=== PATIENT | female | born 1995 | race Caucasian/White ===

== ENCOUNTER 2019-12-27 14:46 | Emergency (ER) | payer OTHER, SELFPAY ==
[2019-12-27 15:04] VITALS: BP 131/71; PULSE 82; RESP 16; TEMP 37.1; O2SAT 99; BMI 24.0
[2019-12-27 15:54] VITALS: BP 126/74; PULSE 74; RESP 17; O2SAT 100
--- NOTE | 2019-12-27 22:48 | ED.SKABFB ---
HPI - Skin/Abscess/Foreign Bdy <MARCI Isabel - Last Filed: 12/27/19 23:22> General Chief complaint: Skin/Abscess/Foreign Body Stated complaint: both hands rash x14 days Time Seen by Provider: 12/27/19 14:54 Source: patient Mode of arrival: Ambulatory Limitations: no limitations History of Present Illness HPI narrative: This is a 24 year female, smoker, who has a history of psoriasis since age 5 presents to ED with bilateral wrist and hand exacerbation of psoriasis last 3 weeks with discomfort. Patient reports some headache, generalized fatigue and not feeling well. Patient states sweaty at nights but denies fever, chills, nausea or vomiting. Patient reports she is super stressed about psoriatic rash. She does not currently have primary care physician and since she is working nights has difficult time finding PCP after she moved. She Has [employer] insurance. She had tried previous triamcinolone ointment but does not feel this has been helpful. She also has history of depression/anxiety and takes venlafaxine daily. She had not tried other medication treatment for discomfort at home. Related Data Home Medications Medication Instructions Recorded Confirmed venlafaxine mg PO 12/27/19 Previous Rx's Medication Instructions Recorded betamethasone dipropionate 1 applictn TOP BID #45 gram 12/27/19 tacrolimus 1 applictn TOP BID #60 gram 12/27/19 Review of Systems <MARCI Isabel - Last Filed: 12/27/19 23:22> Review of Systems Narrative: General: See HPI HEENT: Denies sinus pain, ear pain, sore throat, difficulty swallowing, dizziness. Respiratory: Denies dyspnea, cough, wheezing, hemoptysis, sputum. Cardiovascular: Denies chest pain, palpitations, orthopnea, edema. Gastrointestinal: Denies nausea, vomiting, abdominal pain, diarrhea, constipation, melena. : Denies dysuria, frequency, incontinence, hematuria, urinary retention. Musculoskeletal: Denies weakness, joint pain or bony pain. Skin: See HPI Neurologic: Denies weakness, headache, numbness, change in speech, confusion, seizures, incoordination. Psychiatric: See HPI 12-point review of systems is negative except for those stated above. Patient History <MARCI Isabel - Last Filed: 12/27/19 23:22> Social History Smoking Status: Never smoker Smoking Status: Never smoker alcohol intake frequency: 0-2 drinks per day Substance Use Type: marijuana Exam <Dudley SinghMARCI Coronado - Last Filed: 12/27/19 23:22> Narrative Exam Narrative: General appearance: well developed, well nourished, in moderate distress. Head: normocephalic, atraumatic, no scalp lesions, non-tender. ENT: Hearing grossly intact. Nose without bleeding, purulent discharge. Airway patent. Neck/Thyroid: neck supple, full range of motion, no visible masses or meningeal signs. No JVD, non-tender without lymphadenopathy. Skin: erythematous, raised scaly and plaque like thick psoriatic rash in bilateral dorsal aspect of near wrist/hand with multiple small annular shape which are not as elevated and scaly but with mild erythemtous rash in bilateral inner arms. No purulent discharge or pustules appreciated. No increase in warmth per palpation. Heart: no clubbing, no cyanosis, no edema. Lungs: Breathing even and unlabored. No stridor. No accessory muscles used. Able to speak in full sentences. Chest: normal shape and expansion. Abdomen: non-obese, non-distended. Neurologic: alert and oriented. Cognitive exam, QUALITY ASSURANCE SUPERVISOR FINAL and PNS grossly intact on informal exam. Psych: Tearful during exam. Good eye contact. Cooperative. Initial Vital Signs Initial Vital Signs: Vital Signs Temperature 98.7 F 12/27/19 15:04 Pulse Rate 82 12/27/19 15:04 Respiratory Rate 16 12/27/19 15:04 Blood Pressure 131/71 12/27/19 15:04 Pulse Oximetry 99 12/27/19 15:04 <Emeka Chen MD - Last Filed: 12/28/19 08:07> Initial Vital Signs Initial Vital Signs: Vital Signs Temperature 98.7 F 12/27/19 15:04 Pulse Rate 82 12/27/19 15:04 Respiratory Rate 16 12/27/19 15:04 Blood Pressure 131/71 12/27/19 15:04 Pulse Oximetry 99 12/27/19 15:04 Scores <Dudley CunninghamMARCI White - Last Filed: 12/27/19 23:22> GCS Yuri coma scale eye opening: Spontaneous Ariel coma scale verbal response: Orientated Yuri coma scale motor response: Obey commands Ariel coma scale total score: 15 Course <CESAR IsabelP - Last Filed: 12/27/19 23:22> Vital Signs Vital signs: Vital Signs - 8 hr 12/27/19 15:04 12/27/19 15:54 Temperature 98.7 F Pulse Rate 82 74 Respiratory Rate 16 17 Blood Pressure 131/71 Blood Pressure [Right Arm] 126/74 Pulse Oximetry 99 100 <Emeka Chen MD - Last Filed: 12/28/19 08:07> Vital Signs Vital signs: Vital Signs - 8 hr 12/27/19 15:04 12/27/19 15:54 Temperature 98.7 F Pulse Rate 82 74 Respiratory Rate 16 17 Blood Pressure 131/71 Blood Pressure [Right Arm] 126/74 Pulse Oximetry 99 100 MDM - Skin/Abscess/Foreign Bdy <MARCI Isabel - Last Filed: 12/27/19 23:22> Differential Diagnosis Differential diagnosis: Likely cellulitis and other (Psoriasis, eczema, pustulear psoriasis) MDM Narrative Medical decision making narrative: Physical exam is not consistent with pustular psoriasis. Patient is afebrile with within normal vital signs.. There is no drainage or pustules appreciated. Patient advised to contact [facility] to set up a PCP and a referral to rubber mill operator to have appropriate workup and whether patient is requiring biologic immuno modifying agent therapy. Patient advised to use good quality emollients when the skin is still moist. Patient discharged to home with topical steroid ointment Betamethasone and Tacrolimus ointment to use BID. Return precautions were discussed with the patient and patient verbalized understanding and agreement with the treatment plan. Discharge Plan Departure Patient Disposition: Home Clinical Impression: Psoriasis Discharge Date/Time: 12/27/19 16:04 Instructions: DI for Psoriasis Activity Restrictions/Additional Instructions: You have been diagnosed with [psoriatic rash in bilateral hands and wrist.]. What to do: *Take your medications as directed. Please use Betamethasone 0.05% ointment and Tacrolimus 0.03% ointment twice a day on affected site. Always use good emollient cream. Strong steroid cream can cause thinning of skin so please try to avoid between digits. These 2 ointments have been transmitted to [facility] in [place]. *Follow up with your primary care provider in 2-3 days, call for an appointment. Please contact [facility] (formerly [facility]) to set up a PCP and you may need workup for psoriasis. Let them know you were seen in the ED and that we asked you to be seen in follow up. *Return to ED if you have any new, worsening, or concerning symptoms, such as [chest pain, breathing difficulty, unable to tolerate fluids, fever, or any acute concerns.]. Prescriptions: New tacrolimus 0.03 % ointment 1 applictn TOP BID Qty: 60 RF: 0 betamethasone dipropionate 0.05 % cream 1 applictn TOP BID Qty: 45 RF: 0 No Action venlafaxine 75 mg capsule,extended release 24hr PO RF: 0
== END 2019-12-27 16:04 | disposition home or self-care (01) ==
PROVIDERS: Emergency Provider Nurse Practitioner Family
DX: L40.9 Psoriasis, unspecified (principal)
CPT/HCPCS: 99281

== ENCOUNTER 2020-10-27 02:07 | Emergency (ER) | payer OTHER, MEDICAID, SELFPAY ==
[2020-10-27 02:18] VITALS: BP 141/82; PULSE 85; RESP 20; TEMP 37.7; O2SAT 100; BMI 47.7
--- NOTE | 2020-10-27 02:24 | ED.GENADULT ---
HPI - General Adult General Chief complaint: Dental/Oral Stated complaint: PAIN LOWER RIGHT JAW HAS TOOTH PROBLEM Time Seen by Provider: 10/27/20 02:09 Source: patient Mode of arrival: Ambulatory Limitations: no limitations History of Present Illness HPI narrative: 25-year-old female who is here for evaluation of right lower drawl pain. She knows that she has dental issues in her right lower jaw and also her left lower jaw. She has seen a dentist who placed referral for her to see an oral surgeon. She has been attempting to make contact with the oral surgeon to have definitive treatment and have the tooth pulled but states that they have not called her back. She states that over the past couple days symptoms have been worsening in this evening she was having problems sleeping. No problems breathing. States she has been taking Tylenol and ibuprofen. Related Data Home Medications Medication Instructions Recorded Confirmed venlafaxine mg PO 12/27/19 Previous Rx's Medication Instructions Recorded betamethasone dipropionate 1 applictn TOP BID #45 gram 12/27/19 tacrolimus 1 applictn TOP BID #60 gram 12/27/19 penicillin V potassium 500 mg PO QID 7 Days #28 tab 10/27/20 Review of Systems Constitutional Constitutional: Denies fever(s) ENT Comments: Dental pain Cardiovascular Cardiovascular: Denies chest pain Gastrointestinal Gastrointestinal: Denies vomiting Integumentary/Breasts Skin/Breast: Denies rash Hematologic/Lymphatic On Anticoagulants: No Allergic/Immunologic Allergic/Immunologic: Denies urticaria Patient History Medical History Patient denies medical problems Social History Smoking Status: Never smoker Smoking Status: Never smoker alcohol intake frequency: 0-2 drinks per day Substance Use Type: marijuana Exam Initial Vital Signs Initial Vital Signs: Vital Signs Temperature 99.8 F H 10/27/20 02:18 Pulse Rate 85 10/27/20 02:18 Respiratory Rate 20 10/27/20 02:18 Blood Pressure 141/82 H 10/27/20 02:18 Pulse Oximetry 100 10/27/20 02:18 Const General: cooperative Limitations: mental status not altered HENMT Head: normal to inspection Nose: external nose normal Mouth: lip normal, tongue normal and other (First molar right lower jaw all decayed.) Throat: posterior oropharynx normal Resp Effort & Inspection: normal respiratory effort Skin Lesions: no lesions Rashes: no rashes Neuro General: patient alert, patient awake and patient oriented x3 Course Orders Ordered: Discontinued Medications Penicillin V Potassium (Penicillin Vk 250 Mg Tablet) 500 mg PO NOW ONE Stop: 10/27/20 02:23 Tramadol HCl (Tramadol 50 Mg Prepack) 1 bottle MISC SEEINSTR ONE Stop: 10/27/20 02:24 Vital Signs Vital signs: Vital Signs - 8 hr 10/27/20 02:18 Temperature 99.8 F H Pulse Rate 85 Respiratory Rate 20 Blood Pressure 141/82 H Pulse Oximetry 100 Medical Decision Making MDM Narrative Medical decision making narrative: Patient does have a fairly advanced decayed 1st molar in her right lower jaw. There is no definitive abscess seen on her exam that would be amenable to incision and drainage here in the ER. She also has other poor dentition. Given the increase in discomfort over the past couple days I feel treating with antibiotics is not unreasonable. She was given 1st dose here in the ER will send home with a prescription. Also sent home with a prepack of Ultram. She was informed that she should continue to take Tylenol and ibuprofen and to continue to try to make contact with a dental provider for definitive treatment. She has no airway compromise. She was given return precautions and follow-up instructions. She expressed understanding and agreement. Discharge Plan Departure Patient Disposition: Home Clinical Impression: Pain, dental Instructions: DI for Dental Pain Activity Restrictions/Additional Instructions: Unfortunately there is not much more we can do for you out of the emergency department. Your definitive care is going to come from a dentist/oral surgeon who can pull the tooth. Recommend that you continue to try to make calls in order to schedule the follow-up appointment. Please take the antibiotics as directed. Continue to take Tylenol every 4-6 hours based on the instructions on the bottle. You can also take 800 mg of ibuprofen/Motrin every 8 hours with some food. Contact your primary provider for follow-up Prescriptions: New penicillin V potassium 500 mg tablet 500 mg PO QID 7 Days Qty: 28 RF: 0 No Action tacrolimus 0.03 % ointment 1 applictn TOP BID Qty: 60 RF: 0 betamethasone dipropionate 0.05 % cream 1 applictn TOP BID Qty: 45 RF: 0 venlafaxine 75 mg capsule,extended release 24hr PO RF: 0
[2020-10-27] MEDS: TRAMADOL 50 MG PREPACK 1 BOTTLE MISC (02:31)
[2020-10-27] MEDS: PENICILLIN VK 250 MG TABLET 500 MG PO (02:31)
[2020-10-27 02:35] VITALS: BP 117/74; PULSE 85; RESP 18; O2SAT 97
== END 2020-10-27 02:36 | disposition home or self-care (01) ==
LOC: ED 02:15
PROVIDERS: Emergency Provider Emergency Medicine
DX: K08.89 Other specified disorders of teeth and supporting structures (principal)
CPT/HCPCS: 99283

== ENCOUNTER 2023-08-09 09:49 | Emergency (ER) | payer OTHER, MEDICAID, SELFPAY ==
[2023-08-09] VITALS (8 sets, daily range): BP systolic 102–119; BP diastolic 61–70; PULSE 60–80; RESP 20; TEMP 36.8; O2SAT 98–100; BMI 19.8
--- NOTE | 2023-08-09 10:13 | ED_ITS ---
HPI - General Adult General Chief complaint: Abdominal Pain Stated complaint: sent from [facility] abd pain Time Seen by Provider: 08/09/23 09:49 Source: patient Mode of arrival: Ambulatory Limitations: no limitations History of Present Illness HPI narrative: 28-year-old female who was sent from the walk-in clinic for evaluation of 3-4 days of lower back discomfort. States she has had persistent discomfort during this time but there are periods of time when it is worse than others. Not necessarily associated with movement or bowel movements or urination. She does state that it does somewhat hurt to have a bowel movement and urinating but it does not make her abdominal pain worse. No fevers. No recent travel. No recent antibiotics. No prior abdominal surgeries. Not on control. Last menstrual cycle was less than 1 month ago. Related Data Home Medications Medication Instructions Recorded Confirmed venlafaxine 75 mg capsule,extended mg PO 12/27/19 release 24 hr Previous Rx's Medication Instructions Recorded betamethasone dipropionate 0.05 % 1 applictn topical BID #45 grams 12/27/19 topical cream tacrolimus 0.03 % topical ointment 1 applictn topical BID Psoriasis 12/27/19 #60 grams Review of Systems Review of Systems ROS Unobtainable: All systems reviewed & are unremarkable except as noted in HPI and below Patient History Medical History Patient denies medical problems Social History Smoking Status: Never smoker Smoking Status: Never smoker alcohol intake frequency: 0-2 drinks per day Substance Use Type: marijuana Exam Initial Vital Signs Initial Vital Signs: Vital Signs Pulse Rate 76 08/09/23 09:59 Pulse Oximetry 99 08/09/23 09:59 Oxygen Delivery Method Room Air 08/09/23 09:59 HENMT Head: normal to inspection and normocephalic Resp Effort & Inspection: normal respiratory effort Auscultation: clear to auscultation bilaterally Cardio Rate: regular rate Rhythm: regular rhythm GI Inspection: normal to inspection and non-distended Palpation: soft, No firm, No guarding and tender (Lower abdomen) Back/Spine/Pelvis Back: No CVA tenderness Neuro General: patient alert, patient awake and moves all extremities Course Orders Ordered: ED Orders 08/09/23 10:14 CT abdomen pelvis w con Stat 08/09/23 10:20 Complete Blood Count AUTO DIFF Stat Comprehensive Metabolic Panel Stat Lipase Stat 08/09/23 11:10 US pelvic complete Stat Vital Signs Vital signs: Vital Signs - 8 hr 08/09/23 09:59 08/09/23 10:00 08/09/23 10:00 Temperature 98.3 F Pulse Rate 76 75 Respiratory Rate 20 Blood Pressure 119/69 119/69 Pulse Oximetry 99 98 Oxygen Delivery Method Room Air Room Air 08/09/23 10:00 08/09/23 10:58 08/09/23 11:00 Temperature Pulse Rate 74 60 Respiratory Rate Blood Pressure 102/61 Pulse Oximetry 98 100 Oxygen Delivery Method Room Air 08/09/23 11:00 08/09/23 11:49 08/09/23 12:00 Temperature Pulse Rate 64 63 63 Respiratory Rate Blood Pressure Pulse Oximetry 99 99 98 Oxygen Delivery Method Room Air Room Air Medical Decision Making Lab Data Lab results reviewed: Yes I reviewed the patient's lab results. 08/09/23 10:20 08/09/23 10:20 Labs: Lab Results 08/09/23 Range/Units 10:20 WBC 6.7 (4.5-11.0) X10^3/uL RBC 4.28 (4.0-5.2) X10^6/uL Hgb 12.1 (12.0-16.0) g/dL Hct 36.3 (36-46) % MCV 84.8 (80-100) fL MCH 28.2 (26-34) PG MCHC 33.2 (30-36) % RDW 13.9 (11.6-14.8) % Plt Count 293 (150-400) X10^3/uL Neut % (Auto) 75.9 H (50-75) % Lymph % (Auto) 14.6 L (25-40) % [place] % (Auto) 6.8 (3-14) % Eos % (Auto) 1.9 L (2-4) % Baso % (Auto) 0.8 (0-2) % Neut # (Auto) 5100 (6576-1041) /uL Lymph # (Auto) 1000 L (2661-2026) /uL [place] # (Auto) 500 (0-900) /uL Eos # (Auto) 100 (0-450) /uL Baso # (Auto) 100 (0-100) /uL Sodium 135 L (137-145) mmol/L Potassium 4.0 (3.4-5.1) mmol/L Chloride 106 (98-107) mmol/L Carbon Dioxide 22 (22-32) mmol/L BUN 7 (7-17) mg/dL Creatinine 0.54 (0.52-1.04) mg/dL Estimated GFR > 60 (>60) mL/min BUN/Creatinine Ratio 13.0 (6-22) Glucose 103 H (70-100) mg/dL Calcium 8.6 (8.4-10.2) mg/dL Total Bilirubin 0.7 (0.2-1.3) mg/dL AST 19 (14-36) IU/L ALT 12 (<35) IU/L Alkaline Phosphatase 40 (38-126) U/L Total Protein 7.1 (6.3-8.2) g/dL Albumin 4.0 (3.5-5.0) g/dL Globulin 3.1 (1.7-4.1) g/dL Albumin/Globulin Ratio 1.3 (1.0-2.8) Lipase 89 (23-300) U/L Point of Care Testing Test Results Negative Urine Dip Bedside Urine Glucose Negative Bedside Urine Bilirubin - Negative Bedside Urine Ketone - Negative Urine Specific Leslie 1.030 Bedside Urine Occult Blood - Negative Bedside Urine pH 6.0 Bedside Urine Protein - Negative Bedside Urine Urobilinogen - Negative Bedside Urine Nitrite - Negative Bedside Urine Leukocytes - Negative Esterase Point of care testing: Point of Care Testing Test Results Negative Urine Dip Bedside Urine Glucose Negative Bedside Urine Bilirubin - Negative Bedside Urine Ketone - Negative Urine Specific Leslie 1.030 Bedside Urine Occult Blood - Negative Bedside Urine pH 6.0 Bedside Urine Protein - Negative Bedside Urine Urobilinogen - Negative Bedside Urine Nitrite - Negative Bedside Urine Leukocytes - Negative Esterase Imaging Data CT scan - abdomen/pelvis: Radiologist's Impression: PROCEDURE: CT ABDOMEN PELVIS W CON INDICATIONS: Lower abdominal discomfort. Left lower quadrant pain. TECHNIQUE: After the administration of intravenous contrast, axial sections acquired from the lung bases to the pubic symphysis. Coronal and sagittal reformats were performed. For radiation dose reduction, the following was used: automated exposure control, adjustment of mA and/or kV according to patient size. COMPARISON: None. FINDINGS: Image quality: Diagnostic. Lower Chest: No significant findings. ABDOMEN: Liver: No solid mass. Gallbladder: No radiopaque gallstones or wall thickening. Biliary ducts: No biliary dilation. Pancreas: No ductal dilation. Spleen: Size is within normal limits. Adrenal Glands: No adrenal nodules. Kidneys and Ureters: No hydronephrosis. No solid mass. No complex renal cystic lesion which requires follow up. Stomach and Bowel: Normal colonic caliber, without significant wall thickening. Appendix not visualized. Peritoneum: No abnormal intraperitoneal fluid. No free air. Ventral Wall: No significant ventral hernia. Abdominal Nodes: No retroperitoneal or mesenteric adenopathy by size criteria. Vessels: Aorta and inferior vena cava are normal in size. PELVIS: Pelvic Organs: Uterus is grossly unremarkable. There is a partially collapsed left ovarian cyst. There is mild pelvic ascites, greater than physiologic. There is mild increased density in the ascites, suggesting that it likely arose from a hemorrhagic ovarian cyst. Bladder: No bladder wall thickening, accounting for underdistention. Pelvic Nodes: No enlarged lymph nodes. Miscellaneous: No inguinal hernias are seen. Bones: No aggressive osseous abnormality. IMPRESSION: 1. Appendix not visualized. There is mild pelvic ascites. There is mild increased density within the fluid. There is a partially collapsed left ovarian cyst. Comment: Findings likely simply represent sequelae of cyst rupture. However, recommend clinical correlation for findings which may suggest ruptured appendicitis as a possible etiology. US - SCRAP CARRIER: Radiologist's Impression: PROCEDURE: US PELVIC COMPLETE INDICATIONS: LEFT ADNEXA PAIN TECHNIQUE: Real-time scanning was performed of the pelvic organs, with image documentation. Additional endovaginal scanning was necessary due to incomplete visualization of the adnexal and endometrial structures by transabdominal scanning. COMPARISON: None. FINDINGS: Uterus: Uterus is anteverted and normal in size at 7.3 x 4.1 x 3.4 cm. The myometrium is homogeneous. The endometrium measures 11.7 mm combined thickness. Small endometrial cyst approximately 3 x 1 cm. Ovaries: The right ovary measures 3.3 x 2.2 x 1.8 cm, with a calculated ovarian volume of 6.7 cc. The left ovary measures 3.4 x 2.9 x 2.3 cm, with a calculated ovarian volume of 11.7 cc. The ovaries have a normal sonographic appearance. Probable hemorrhagic cyst in the left ovary measures 2.1 x 1.9 x 1.5. Less than 12 follicles are noted bilaterally. No adnexal masses are seen. Other: [id number] heterogenous free fluid in the pelvis IMPRESSION: Probable ruptured hemorrhagic cyst. [id number] adnexal heterogenous free fluid and thick-walled 2.1 cm left ovarian hemorrhagic cyst, probable collapsing hemorrhagic cyst. MDM Narrative Medical decision making narrative: CT scan and ultrasound today did not show any acute pathology. Findings are most consistent with a ruptured ovarian cyst. Most likely hemorrhagic given the nature of the fluid in her pelvis. No signs of infection. No indication for emergent surgical consultation. Suspect that her symptoms will improve. I discussed all this with the patient. Will discharge her home with return precautions. She expressed understanding and agreement. Discharge Plan Departure Patient Disposition: Home Clinical Impression: Pelvic pain Instructions: DI for Pelvic Pain Activity Restrictions/Additional Instructions: Like we discussed your workup here in the emergency department today is most consistent with a ruptured cyst. This is most likely what we call a hemorrhagic cyst. I suspect that your symptoms will improve over the next couple days. Contact your primary doctor for a follow-up. Return to the emergency department for new symptoms. Prescriptions: No Action tacrolimus 0.03 % ointment 1 applictn TOP BID Qty: 60 0RF betamethasone dipropionate 0.05 % cream 1 applictn TOP BID Qty: 45 0RF venlafaxine 75 mg capsule,extended release 24hr PO Referrals: Miscellaneous,[facility] [Primary Care Provider] - Stand Alone Forms: Patient Portal/API
--- NOTE | 2023-08-09 10:37 | PC.NURSE ---
Pt reports back in june of 2023 she took a plan B pill because she needed to. A week later she developed abdominal pain. Three days ago today patient developed LLQ abdominal pain again with nausea. She has been taking ibuprofen for the pain. Currently denies nausea in the ER.
[2023-08-09 10:39] LABS: Add Manual Diff / Slide Review NO; Basophils Absolute Auto 100 /uL (0-100); Basophils Percent Auto 0.8 % (0-2); Eosinophils Absolute Auto 100 /uL (0-450); Eosinophils Percent Auto 1.9 % (2-4); Hematocrit 36.3 % (36-46); Hemoglobin 12.1 g/dL (12.0-16.0); Lymphocytes Absolute Auto 1000 /uL (1100-4500); Lymphocytes Percent Auto 14.6 % (25-40); Mean Corpuscular HGB Conc 33.2 % (30-36); Mean Corpuscular Hemoglobin 28.2 PG (26-34); Mean Corpuscular Volume 84.8 fL (80-100); Monocytes Absolute Auto 500 /uL (0-900); Monocytes Percent Auto 6.8 % (3-14); Neutrophils Absolute Auto 5100 /uL (1500-7000); Neutrophils Percent Auto 75.9 % (50-75); Platelet Count 293 X10^3/uL (150-400); Red Blood Cell Count 4.28 X10^6/uL (4.0-5.2); Red Cell Distribution Width 13.9 % (11.6-14.8); White Blood Cell Count 6.7 X10^3/uL (4.5-11.0)
[2023-08-09 10:50] LABS: Alanine Aminotransferase 12 IU/L (<35); Albumin Globulin Ratio 1.3 (1.0-2.8); Alkaline Phosphatase 40 U/L (38-126); Aspartate Aminotransferase 19 IU/L (14-36); Bilirubin Total 0.7 mg/dL (0.2-1.3); Blood Urea Nitrogen 7 mg/dL (7-17); Calcium 8.6 mg/dL (8.4-10.2); Carbon Dioxide 22 mmol/L (22-32); Chloride 106 mmol/L (98-107); Estimated Glomerular Filt Rate > 60 mL/min (>60); Globulin 3.1 g/dL (1.7-4.1); Glucose 103 mg/dL (70-100); HEMOLYSIS < 15 (0-50); Lipase 89 U/L (23-300); Sodium 135 mmol/L (137-145); Total Protein 7.1 g/dL (6.3-8.2)
--- NOTE | 2023-08-09 11:10 | DI.US.S_ITS ---
PROCEDURE: US PELVIC COMPLETE INDICATIONS: LEFT ADNEXA PAIN TECHNIQUE: Real-time scanning was performed of the pelvic organs, with image documentation. Additional endovaginal scanning was necessary due to incomplete visualization of the adnexal and endometrial structures by transabdominal scanning. COMPARISON: None. FINDINGS: Uterus: Uterus is anteverted and normal in size at 7.3 x 4.1 x 3.4 cm. The myometrium is homogeneous. The endometrium measures 11.7 mm combined thickness. Small endometrial cyst approximately 3 x 1 cm. Ovaries: The right ovary measures 3.3 x 2.2 x 1.8 cm, with a calculated ovarian volume of 6.7 cc. The left ovary measures 3.4 x 2.9 x 2.3 cm, with a calculated ovarian volume of 11.7 cc. The ovaries have a normal sonographic appearance. Probable hemorrhagic cyst in the left ovary measures 2.1 x 1.9 x 1.5. Less than 12 follicles are noted bilaterally. No adnexal masses are seen. Other: Ingl-wi-qhfqxhbm heterogenous free fluid in the pelvis IMPRESSION: Probable ruptured hemorrhagic cyst. [id number] adnexal heterogenous free fluid and thick-walled 2.1 cm left ovarian hemorrhagic cyst, probable collapsing hemorrhagic cyst. Approved by: Cristopher Mishra M.D. on 08/09/2023 at 11:14
== END 2023-08-09 12:40 | disposition home or self-care (01) ==
PROVIDERS: Emergency Provider Emergency Medicine
DX: R10.2 Pelvic and perineal pain (principal)
CPT/HCPCS: 36415; 74177; 76830; 76856; 80053; 81003; 81025; 83690; 85025; 93975; 99284

== ENCOUNTER 2023-08-16 19:59 | Emergency (ER) | payer OTHER, MEDICAID, SELFPAY ==
[2023-08-16 19:59] VITALS: BP 111/65; PULSE 79; RESP 16; TEMP 36.4; O2SAT 100; BMI 19.8
--- NOTE | 2023-08-16 20:44 | ED.GENADULT ---
HPI - General Adult General Chief complaint: Abdominal Pain Stated complaint: post ovarian cyst rupture/pain/N/vaginal bleeding Time Seen by Provider: 08/16/23 20:02 Source: patient Mode of arrival: Family Vehicle History of Present Illness HPI narrative: 28-year-old female who I evaluated in the emergency department approximately 1 week ago. Had an extensive workup to include CT scan of the abdomen and pelvis and an ultrasound. Findings were concerning for a recently ruptured left-sided hemorrhagic ovarian cyst. She states since that time she has had some continued discomfort in her lower abdomen. There are periods of time when it was worse than others. Is also having some nausea but no vomiting. She was also started to have vaginal bleeding. She does admit that this is the time for her to have a menstrual cycle she just feels like the amount of bleeding she has having a somewhat abnormal for her. No fevers. No urinary symptoms. No change in bowel habits. She does have a follow-up scheduled with a new primary doctor in approximately 10 days from now. She reports no new abdominal pain just continued discomfort from the last time she was here. Related Data Home Medications Medication Instructions Recorded Confirmed venlafaxine 75 mg capsule,extended mg PO 12/27/19 release 24 hr Previous Rx's Medication Instructions Recorded betamethasone dipropionate 0.05 % 1 applictn topical BID #45 grams 12/27/19 topical cream tacrolimus 0.03 % topical ointment 1 applictn topical BID Psoriasis 12/27/19 #60 grams Allergies Allergy/AdvReac Type Severity Reaction Status Date / Time No Known Drug Allergies Allergy Verified 08/16/23 20:15 Review of Systems Cardiovascular Cardiovascular: Reports system reviewed and no additional complaints, except as documented Respiratory Respiratory: Reports system reviewed and no additional complaints, except as documented Gastrointestinal Gastrointestinal: Reports system reviewed and no additional complaints, except as documented Genitourinary Genitourinary: Reports system reviewed and no additional complaints, except as documented Integumentary/Breasts Skin/Breast: Reports system reviewed and no additional complaints, except as documented Hematologic/Lymphatic On Anticoagulants: No Patient History Medical History Patient denies medical problems Social History Smoking Status: Never smoker Smoking Status: Never smoker tobacco type: vaping alcohol intake frequency: 0-2 drinks per day Substance Use Type: marijuana Exam Initial Vital Signs Initial Vital Signs: Vital Signs Temperature 97.6 F 08/16/23 19:59 Pulse Rate 79 08/16/23 19:59 Respiratory Rate 16 08/16/23 19:59 Blood Pressure 111/65 08/16/23 19:59 Pulse Oximetry 100 08/16/23 19:59 Oxygen Delivery Method Room Air 08/16/23 19:59 HENMT Head: normal to inspection and atraumatic Resp Effort & Inspection: normal respiratory effort Cardio Rate: regular rate GI Inspection: non-distended Palpation: No firm, No guarding and tender Neuro General: patient alert, patient awake and moves all extremities Extrem General: capillary refill normal Course Orders Ordered: ED Orders 08/16/23 20:50 CBC Auto Diff [Complete Blood Count AUTO DIFF] Stat Discontinued Medications Tramadol HCl (Tramadol 50 Mg Prepack) 1 bottle MISC DIRECTED ONE Stop: 08/16/23 21:35 Last Admin: 08/16/23 21:43 Dose: 1 bottle Documented By: EDITA Vital Signs Vital signs: Vital Signs - 8 hr 08/16/23 19:59 08/16/23 21:44 Temperature 97.6 F 97 F L Pulse Rate 79 70 Respiratory Rate 16 16 Blood Pressure 111/65 108/68 Pulse Oximetry 100 98 Oxygen Delivery Method Room Air Room Air Medical Decision Making Medical Records Medical records reviewed: Yes I reviewed the patient's medical records. Lab Data Lab results reviewed: Yes I reviewed the patient's lab results. 08/16/23 20:50 Labs: Lab Results 08/16/23 Range/Units 20:50 WBC 7.5 (4.5-11.0) X10^3/uL RBC 3.97 L (4.0-5.2) X10^6/uL Hgb 11.5 L (12.0-16.0) g/dL Hct 34.0 L (36-46) % MCV 85.7 (80-100) fL MCH 29.1 (26-34) PG MCHC 34.0 (30-36) % RDW 13.9 (11.6-14.8) % Plt Count 295 (150-400) X10^3/uL Neut % (Auto) 61.9 (50-75) % Lymph % (Auto) 27.0 (25-40) % [place] % (Auto) 7.1 (3-14) % Eos % (Auto) 3.2 (2-4) % Baso % (Auto) 0.8 (0-2) % Neut # (Auto) 4600 (4592-9364) /uL Lymph # (Auto) 2000 (3806-0619) /uL [place] # (Auto) 500 (0-900) /uL Eos # (Auto) 200 (0-450) /uL Baso # (Auto) 100 (0-100) /uL MDM Narrative Medical decision making narrative: Patient is not anemic to the point where she would require any blood transfusion. Given the extensive workup she has had within the past week I do not feel that repeat imaging studies would be beneficial. I did discuss with her that the fluid in the pelvis noted on both the CT scan of the ultrasound can be very irritating and can cause many of the symptoms that she presents with today. She also may have abnormal menstrual cycles because this was a hemorrhagic cyst. She already has follow-up scheduled. No indication for surgical consultation. No indication for admission to the hospital. She was given return precautions. She expressed understanding and agreement. Discharge Plan Departure Patient Disposition: Home Clinical Impression: Pelvic pain Instructions: DI for Pelvic Pain Activity Restrictions/Additional Instructions: I do recommend that you continue taking Tylenol and ibuprofen for the discomfort. Keep your scheduled follow-up appointment that you have with your primary doctor. Return to the emergency department for new symptoms. Prescriptions: No Action tacrolimus 0.03 % ointment 1 applictn TOP BID Qty: 60 0RF betamethasone dipropionate 0.05 % cream 1 applictn TOP BID Qty: 45 0RF venlafaxine 75 mg capsule,extended release 24hr PO Referrals: Miscellaneous,Doctor, [Primary Care Provider] - Stand Alone Forms: Patient Portal/API
[2023-08-16 20:55] LABS: Add Manual Diff / Slide Review NO; Basophils Absolute Auto 100 /uL (0-100); Basophils Percent Auto 0.8 % (0-2); Eosinophils Absolute Auto 200 /uL (0-450); Eosinophils Percent Auto 3.2 % (2-4); Hemoglobin 11.5 g/dL (12.0-16.0); Lymphocytes Absolute Auto 2000 /uL (1100-4500); Mean Corpuscular Hemoglobin 29.1 PG (26-34); Mean Corpuscular Volume 85.7 fL (80-100); Monocytes Absolute Auto 500 /uL (0-900); Monocytes Percent Auto 7.1 % (3-14); Neutrophils Absolute Auto 4600 /uL (1500-7000); Neutrophils Percent Auto 61.9 % (50-75); Platelet Count 295 X10^3/uL (150-400); Red Blood Cell Count 3.97 X10^6/uL (4.0-5.2); Red Cell Distribution Width 13.9 % (11.6-14.8); White Blood Cell Count 7.5 X10^3/uL (4.5-11.0)
[2023-08-16] MEDS: TRAMADOL 50 MG PREPACK 1 BOTTLE MISC (21:43)
[2023-08-16 21:44] VITALS: BP 108/68; PULSE 70; RESP 16; TEMP 36.1; O2SAT 98
== END 2023-08-16 21:45 | disposition home or self-care (01) ==
PROVIDERS: Emergency Provider Emergency Medicine
DX: R10.2 Pelvic and perineal pain (principal)
CPT/HCPCS: 85025; 99281; 99283

== ENCOUNTER 2023-11-12 21:14 | Emergency (ER) | payer OTHER, MEDICAID, SELFPAY ==
[2023-11-12 21:22] VITALS: BP 113/56; PULSE 84; RESP 18; TEMP 36.3; O2SAT 98; BMI 19.0
[2023-11-12 21:43] LABS: Ictotest Urine Negative (Negative)
--- NOTE | 2023-11-12 22:19 | ED_ITS ---
HPI - Abdominal Pain General Chief Complaint: Abdominal Pain Stated Complaint: lower abd pain Time Seen by Provider: 11/12/23 21:32 Source: patient Mode of arrival: Ambulatory History of Present Illness HPI narrative: 28-year-old female with history of psoriasis presents for lower abdominal pain, cramping, bloating sensation, breast tenderness. Denies vaginal bleeding. Seen here 08/16/2023 for lower abdominal pain, diagnosed with ovarian cyst. Patient has been taking savw-ioc-pripoea medication without significant relief of symptoms. Related Data Home Medications Medication Instructions Recorded Confirmed venlafaxine 75 mg capsule,extended mg PO 12/27/19 release 24 hr Previous Rx's Medication Instructions Recorded betamethasone dipropionate 0.05 % 1 applictn topical BID #45 grams 12/27/19 topical cream tacrolimus 0.03 % topical ointment 1 applictn topical BID Psoriasis 12/27/19 #60 grams Allergies Allergy/AdvReac Type Severity Reaction Status Date / Time No Known Drug Allergies Allergy Verified 11/12/23 21:21 Review of Systems Review of Systems Narrative: See HPI Patient History Medical History Patient denies medical problems Social History Smoking Status: Never smoker Smoking Status: Never smoker tobacco type: vaping alcohol intake frequency: 0-2 drinks per day Substance Use Type: marijuana Exam Initial Vital Signs Initial Vital Signs: Vital Signs Temperature 97.4 F L 11/12/23 21:22 Pulse Rate 84 11/12/23 21:22 Respiratory Rate 18 11/12/23 21:22 Blood Pressure 113/56 L 11/12/23 21:22 Pulse Oximetry 98 11/12/23 21:22 Oxygen Delivery Method Room Air 11/12/23 21:22 Const: Awake, alert, no acute distress, nontoxic appearing Cardiac: regular rate, regular rhythm RESP: unlabored, clear bilaterally, no wheezing GI: Soft, nontender, nondistended, no rebound, no guarding Skin: Warm, Dry, extensive psoriatic rash over face, extremities, abdomen Neuro: AO x3, CN II-XII grossly intact, moves all extremities Course Orders Ordered: Discontinued Medications Acetaminophen (Ofirmev) 1,000 mg in 100 mls @ 400 mls/hr IV NOW ONE Stop: 11/12/23 23:10 Last Infusion: 11/12/23 23:32 Dose: Infused Documented By: Admin: 11/12/23 23:10 Dose: 400 mls/hr Documented By: DARCIE Vital Signs Vital signs: Vital Signs - 8 hr 11/12/23 21:22 Temperature 97.4 F L Pulse Rate 84 Respiratory Rate 18 Blood Pressure 113/56 L Pulse Oximetry 98 Oxygen Delivery Method Room Air MDM - Abdominal Pain Differential Diagnosis Differential diagnosis: Likely abdominal pain, endometriosis and other () Lab Data 11/12/23 22:22 11/12/23 22:22 Labs: Lab Results 11/12/23 11/12/23 Range/Units 21:31 22:22 WBC 11.1 H (4.5-11.0) X10^3/uL RBC 4.09 (4.0-5.2) X10^6/uL Hgb 12.0 (12.0-16.0) g/dL Hct 36.0 (36-46) % MCV 87.9 (80-100) fL MCH 29.4 (26-34) PG MCHC 33.4 (30-36) % RDW 13.6 (11.6-14.8) % Plt Count 346 (150-400) X10^3/uL Neut % (Auto) 68.1 (50-75) % Lymph % (Auto) 20.4 L (25-40) % [place] % (Auto) 8.9 (3-14) % Eos % (Auto) 2.1 (2-4) % Baso % (Auto) 0.5 (0-2) % Neut # (Auto) 7500 H (0031-0470) /uL Lymph # (Auto) 2300 (1300-7324) /uL [place] # (Auto) 1000 H (0-900) /uL Eos # (Auto) 200 (0-450) /uL Baso # (Auto) 100 (0-100) /uL Sodium 137 (137-145) mmol/L Potassium 4.0 (3.4-5.1) mmol/L Chloride 107 (98-107) mmol/L Carbon Dioxide 26 (22-32) mmol/L BUN 10 (7-17) mg/dL Creatinine 0.61 (0.52-1.04) mg/dL Estimated GFR > 60 (>60) mL/min BUN/Creatinine Ratio 16.4 (6-22) Glucose 97 (70-100) mg/dL Calcium 8.9 (8.4-10.2) mg/dL Total Bilirubin 0.2 (0.2-1.3) mg/dL AST 17 (14-36) IU/L ALT 11 (<35) IU/L Alkaline Phosphatase 38 (38-126) U/L Total Protein 7.1 (6.3-8.2) g/dL Albumin 4.3 (3.5-5.0) g/dL Globulin 2.8 (1.7-4.1) g/dL Albumin/Globulin Ratio 1.5 (1.0-2.8) HCG, Quant 7185.2 mIU/mL Ur Bilirubin Confirm Negative (Negative) Blood Type O Positive Point of care testing: Point of Care Testing Test Results Positive Urine Dip Bedside Urine Glucose Negative Bedside Urine Bilirubin + 1 Bedside Urine Ketone - Negative Urine Specific [place] 1.025 Bedside Urine Occult Blood - Negative Bedside Urine pH 6.0 Bedside Urine Protein - Negative Bedside Urine Urobilinogen - Negative Bedside Urine Nitrite - Negative Bedside Urine Leukocytes - Negative Esterase Imaging Data US - OB: Radiologist's Impression: PROCEDURE: US OB <= 14 WEEKS FETUS INDICATIONS: L ABDOMEN PAIN, EARLY OUTSIDE/PRIOR DATING DATA: Last menstrual period (LMP): 10/10/2023. LMP-based estimated date of delivery (FOREIGN): 07/16/2024. First dating scan (date and location): 11/12/2023. Estimated date of delivery (FOREIGN) from first dating scan: 07/11/2024. TECHNIQUE: Real-time scanning was performed of the fetus and maternal pelvic organs, with image documentation. Endovaginal scanning was also performed to better visualize the fetus and maternal ovaries. COMPARISON: None. FINDINGS: Intrauterine gestational sac is seen measuring 0.7 cm. There is also a yolk sac. No pole identified. Possible right corpus luteum cyst. IMPRESSION: Intrauterine gestational sac with a yolk sac, but without pole. of unknown viability. Recommend laboratory and follow-up imaging in 14 days or sooner. Dictated by: Jake Banks M.D. on 11/12/2023 at 23:13 Approved by: Jake Banks M.D. on 11/12/2023 at 23:14 MDM Narrative Medical decision making narrative: Lower abdominal pain and cramping. Patient had positive point of care test. Confirmed with hCG quant. Patient surprised that she had positive test. Since she was having lower abdominal pain and there was no positive confirmed intrauterine an ultrasound was ordered. This shows a intrauterine gestational sac, approximately 5 weeks based on last menstrual period. Patient informed of ultrasound results, recommended close OBGYN follow up. Recommended Tylenol as needed for pain. Discharge Plan Departure Patient Disposition: Home Clinical Impression: First trimester Abdominal pain Qualifiers: Abdominal location: lower abdomen, unspecified Qualified Code(s): R10.30 - Lower abdominal pain, unspecified Instructions: DI for Abdominal Pain-Adult Activity Restrictions/Additional Instructions: Your ultrasound shows that you are approximately 5 weeks . It was recommended that you get repeat ultrasound imaging in 2 weeks to assess for viability. Your other laboratory work was normal. Prescriptions: No Action tacrolimus 0.03 % ointment 1 applictn TOP BID Qty: 60 0RF betamethasone dipropionate 0.05 % cream 1 applictn TOP BID Qty: 45 0RF venlafaxine 75 mg capsule,extended release 24hr PO Referrals: Miscellaneous,Doctor, [Primary Care Provider] - Stacy Booker DO [Physician] - Stand Alone Forms: Patient Portal/API
[2023-11-12 22:39] LABS: Add Manual Diff / Slide Review NO; Basophils Absolute Auto 100 /uL (0-100); Basophils Percent Auto 0.5 % (0-2); Eosinophils Absolute Auto 200 /uL (0-450); Eosinophils Percent Auto 2.1 % (2-4); Lymphocytes Absolute Auto 2300 /uL (1100-4500); Lymphocytes Percent Auto 20.4 % (25-40); Mean Corpuscular HGB Conc 33.4 % (30-36); Mean Corpuscular Hemoglobin 29.4 PG (26-34); Mean Corpuscular Volume 87.9 fL (80-100); Monocytes Absolute Auto 1000 /uL (0-900); Monocytes Percent Auto 8.9 % (3-14); Neutrophils Absolute Auto 7500 /uL (1500-7000); Neutrophils Percent Auto 68.1 % (50-75); Platelet Count 346 X10^3/uL (150-400); Red Blood Cell Count 4.09 X10^6/uL (4.0-5.2); Red Cell Distribution Width 13.6 % (11.6-14.8); White Blood Cell Count 11.1 X10^3/uL (4.5-11.0)
[2023-11-12 22:44] LABS: Alanine Aminotransferase 11 IU/L (<35); Albumin 4.3 g/dL (3.5-5.0); Albumin Globulin Ratio 1.5 (1.0-2.8); Alkaline Phosphatase 38 U/L (38-126); Aspartate Aminotransferase 17 IU/L (14-36); BUN Creatinine Ratio 16.4 (6-22); Bilirubin Total 0.2 mg/dL (0.2-1.3); Blood Urea Nitrogen 10 mg/dL (7-17); Calcium 8.9 mg/dL (8.4-10.2); Carbon Dioxide 26 mmol/L (22-32); Chloride 107 mmol/L (98-107); Estimated Glomerular Filt Rate > 60 mL/min (>60); Globulin 2.8 g/dL (1.7-4.1); Glucose 97 mg/dL (70-100); HEMOLYSIS < 15 (0-50); Sodium 137 mmol/L (137-145); Total Protein 7.1 g/dL (6.3-8.2)
[2023-11-12 23:00] LABS: HCG Quantitative /Beta subunit 7185.2 mIU/mL
[2023-11-12] MEDS: ACETAMINOPHEN IV 1,000 MG/100 ML VIAL 400 MG IV (23:10)
[2023-11-12 23:31] VITALS: BP 105/63; PULSE 74; RESP 16; O2SAT 100
== END 2023-11-12 23:35 | disposition home or self-care (01) ==
PROVIDERS: Emergency Provider Emergency Medicine
DX: O26.891 Other specified pregnancy related conditions, first trimester (principal); R10.30 Lower abdominal pain, unspecified; Z3A.01 Less than 8 weeks gestation of pregnancy
CPT/HCPCS: 36415; 76801; 80053; 81003; 81025; 84702; 85025; 86900; 86901; 96365; 99284; J0136

== ENCOUNTER 2023-11-23 22:10 | Emergency (ER) | payer OTHER, MEDICAID, SELFPAY ==
[2023-11-23 22:14] VITALS: BP 132/83; PULSE 93; RESP 16; TEMP 36.6; O2SAT 100; BMI 19.8
--- NOTE | 2023-11-23 23:44 | ED.ABDPAIN ---
HPI - Abdominal Pain General Chief Complaint: Abdominal Pain Stated Complaint: cramping 6 wks Time Seen by Provider: 11/23/23 23:44 Source: patient Mode of arrival: Ambulatory History of Present Illness HPI narrative: (patient left without seeing provider, nursing notes indicate patient has no bleeding, had some abdominal cramping after intercourse, and apparently has known IUP by recent ultrasound) Related Data Home Medications Medication Instructions Recorded Confirmed venlafaxine 75 mg capsule,extended mg PO 12/27/19 release 24 hr Previous Rx's Medication Instructions Recorded betamethasone dipropionate 0.05 % 1 applictn topical BID #45 grams 12/27/19 topical cream tacrolimus 0.03 % topical ointment 1 applictn topical BID Psoriasis 12/27/19 #60 grams Allergies Allergy/AdvReac Type Severity Reaction Status Date / Time No Known Drug Allergies Allergy Verified 11/23/23 22:14 Patient History Medical History Patient denies medical problems Social History Smoking Status: Never smoker Smoking Status: Never smoker tobacco type: vaping alcohol intake frequency: 0-2 drinks per day Substance Use Type: marijuana Exam Initial Vital Signs Initial Vital Signs: Vital Signs Temperature 97.8 F 11/23/23 22:14 Pulse Rate 93 H 11/23/23 22:14 Respiratory Rate 16 11/23/23 22:14 Blood Pressure 132/83 11/23/23 22:14 Pulse Oximetry 100 11/23/23 22:14 Oxygen Delivery Method Room Air 11/23/23 22:14 Course Vital Signs Vital signs: Vital Signs - 8 hr 11/23/23 22:14 Temperature 97.8 F Pulse Rate 93 H Respiratory Rate 16 Blood Pressure 132/83 Pulse Oximetry 100 Oxygen Delivery Method Room Air Discharge Plan Departure Patient Disposition: Left Without Being Seen Clinical Impression: Patient left without being seen Prescriptions: No Action tacrolimus 0.03 % ointment 1 applictn TOP BID Qty: 60 0RF betamethasone dipropionate 0.05 % cream 1 applictn TOP BID Qty: 45 0RF venlafaxine 75 mg capsule,extended release 24hr PO
== END 2023-11-24 00:44 | disposition left against medical advice (07) ==
PROVIDERS: Emergency Provider Emergency Medicine; PCP Family Medicine
CPT/HCPCS: 99281

== ENCOUNTER 2024-04-11 16:42 | Emergency (ER) | payer OTHER, MEDICAID, SELFPAY ==
[2024-04-11 16:46] VITALS: BP 140/76; PULSE 89; RESP 16; TEMP 37.2; O2SAT 98; BMI 19.8
--- NOTE | 2024-04-11 16:54 | DI.RAD.S_ITS ---
PROCEDURE: XR CHEST 1V INDICATIONS: chest tightness TECHNIQUE: One view of the chest was acquired. COMPARISON: None. FINDINGS: Surgical changes and devices: None. Lungs and pleura: Lungs are clear. No pleural effusions or pneumothorax. Mediastinum: Mediastinal contours appear normal. Heart size is normal. Bones and chest wall: No suspicious bony lesions. Overlying soft tissues appear unremarkable. IMPRESSION: No acute cardiopulmonary abnormality is seen. Approved by: Cristopher Mishra M.D. on 04/11/2024 at 16:48
[2024-04-11] MEDS: KETOROLAC 30 MG/ML VIAL IM (18:22)
--- NOTE | 2024-04-11 18:33 | PC.NURSE ---
Pt endorses chest pain with feeling SOB with exhertion such as walking around and sweeping at work. Endorses feeling off and fogginess. She has had angina before. Lung sounds clear, heart rate irregular by auscultation. Provider notified.
[2024-04-11 18:44] LABS: Pregnancy Test Urine Negative (Negative)
[2024-04-11] MEDS: MAG HYDROX/ALUMINUM/SIMETH SUS 20 ML, LIDOCAINE VISCOUS 2% 15 ML PO (18:54)
--- NOTE | 2024-04-11 19:04 | ED_ITS ---
HPI - Chest Pain <Tone Lopes PA-C - Last Filed: 04/11/24 19:27> General Chief Complaint: Upper Respiratory Symptoms Stated Complaint: tight chest pain, SOB Time Seen by Provider: 04/11/24 17:58 Source: patient Mode of arrival: Ambulatory History of Present Illness HPI narrative: This patient is a 28-year-old female with medical history except for psoriasis. She smokes marijuana on a fairly frequent basis and eats a diet high in greasy and spicy foods. She has had epigastric discomfort and burning in the back of her throat for the past 2 days. There has been low-grade nausea but no vomiting. She denies hematemesis, melena, hematochezia, night sweats, fever, chills, radiating chest pain or shortness of breath. The patient states that she has slight discomfort with taking a, ?deep breath? but she does not have any dyspnea on exertion. She also denies pedal edema, back pain, recent illness or cough. No treatments have been tried for this and she has not seen a PCP for today's chief complaint. The patient did recently have a tooth extraction performed approximately a week ago. Related Data Home Medications Medication Instructions Recorded Confirmed venlafaxine 75 mg capsule,extended mg PO 12/27/19 release 24 hr Previous Rx's Medication Instructions Recorded betamethasone dipropionate 0.05 % 1 applictn topical BID #45 grams 12/27/19 topical cream tacrolimus 0.03 % topical ointment 1 applictn topical BID Psoriasis 12/27/19 #60 grams famotidine 40 mg tablet (Pepcid) 40 mg PO BEDTIME #20 tabs 04/11/24 ketorolac 10 mg tablet 10 mg PO Q6H PRN pain #20 tabs 04/11/24 pantoprazole 40 mg tablet,delayed 40 mg PO QAM #20 tabs 04/11/24 release (Protonix) Allergies Allergy/AdvReac Type Severity Reaction Status Date / Time No Known Drug Allergies Allergy Verified 04/11/24 16:46 Review of Systems <Tone Lopes PA-C - Last Filed: 04/11/24 19:27> Review of Systems Narrative: General: See HPI CV: See HPI GI: See HPI All other review of systems have been reviewed and are ultimately negative unless otherwise stated in the HPI. Patient History <Tone Lopes PA-C - Last Filed: 04/11/24 19:27> Medical History Patient denies medical problems Social History Smoking Status: Never smoker Smoking Status: Never smoker tobacco type: vaping alcohol intake frequency: 0-2 drinks per day Substance Use Type: marijuana Exam <Tone Lopes PA-C - Last Filed: 04/11/24 19:27> Initial Vital Signs Initial Vital Signs: Vital Signs Temperature 98.9 F 04/11/24 16:46 Pulse Rate 89 04/11/24 16:46 Respiratory Rate 16 04/11/24 16:46 Blood Pressure 140/76 04/11/24 16:46 Pulse Oximetry 98 04/11/24 16:46 Oxygen Delivery Method Room Air 04/11/24 16:46 Const General: cooperative, healthy appearing, comfortable, well developed and well groomed [facility] Head: normal to inspection, normocephalic and atraumatic Ears: hearing grossly normal bilaterally and external ears normal Nose: external nose normal and nares normal Face and sinus: normal facial exam Mouth: oral mucosae normal Eyes General: Yes appearance normal, both eyes and all related structures Visual Kelley: normal visual kelley by confrontation Alignment and Position: alignment normal and position normal Periorbital: periorbital findings normal Eyelids: eyelids normal Conjunctivae: conjunctivae normal Pupils: PERRL, normal by confrontation and accommodation normal Neck Neck: normal visual inspection, full ROM and no meningeal signs Resp Effort & Inspection: normal respiratory effort and able to speak in complete se ntences Auscultation: clear to auscultation bilaterally Cardio Rate: regular rate Rhythm: regular rhythm Heart Sounds: S1 normal and S2 normal GI Palpation: soft and no hepatosplenomegaly Other: No CVA tenderness bilaterally Back/Spine/Pelvis Back: normal to inspection Skin General: no rashes or lesions noted, elasticity normal and turgor normal Neuro General: patient alert, patient awake and patient oriented x3 Extrem General: normal to inspection, full ROM and capillary refill normal Psych Appearance: grossly normal and well kempt <Mamta Milan DO - Last Filed: 04/12/24 08:09> Initial Vital Signs Initial Vital Signs: Vital Signs Temperature 98.9 F 04/11/24 16:46 Pulse Rate 89 04/11/24 16:46 Respiratory Rate 16 04/11/24 16:46 Blood Pressure 140/76 04/11/24 16:46 Pulse Oximetry 98 04/11/24 16:46 Oxygen Delivery Method Room Air 04/11/24 16:46 Scores <Tone Lopes PA-C - Last Filed: 04/11/24 19:27> PERC Score Age greater than or equal to 50 years: No Heart rate greater than or equal to 100 bpm: No Room Air O2 Sat less than 95%: No Unilateral leg swelling: No Recent trauma or surgery: Yes Hemoptysis: No Prior PE or DVT: No Hormone Use: No Total PERC Score: 1 <Mamta Milan DO - Last Filed: 04/12/24 08:09> PERC Score Total PERC Score: 1 Course <Tone Lopes PA-C - Last Filed: 04/11/24 19:27> Course Course Narrative: Patient was seen and examined. A two-view chest x-ray was ordered at the time of triage and this was interpreted by the radiologist as a normal study. I then ordered a urine test which was negative. She received Toradol 30 mg IM with some relief and had additional relief with a GI cocktail patient's 12 lead EKG did not reveal any acute findings per stated below. This is likely gastritis secondary to the patient's dietary habits and marijuana use. She also likes to vape nicotine. I will start the patient on Pepcid at night, Protonix in the morning and over the course of the next 5 days to treat her suspected costochondritis, I will keep the patient on ketorolac up to 4 times a day as needed. I do not believe this is a pulmonary embolism. The patient's PERC score is 1. She is at low risk for an [place]. Her EKG is reassuring. If this was a STEMI, the EKG which showed changes and the patient would not have relief with a GI cocktail and ketorolac IM. I also do not believe this is pneumonia since she has a normal chest x-ray. Patient appears clinically stable for outpatient follow up. There are no additional questions at the time of discharge and she will follow up as requested. As always, patient was advised to return here immediately if worse. Orders Ordered: Discontinued Medications Al Hydrox/Mg Hydrox/Simethicone 20 ml/ Lidocaine HCl 15 ml 0 ml PO NOW ONE Stop: 04/11/24 18:42 Last Admin: 04/11/24 18:54 Dose: 35 ml Documented By: SPF Ketorolac Tromethamine (Ketorolac 30 Mg/Ml Vial) 30 mg IM NOW ONE Stop: 04/11/24 18:02 Last Admin: 04/11/24 18:22 Dose: 30 mg Documented By: SPF Vital Signs Vital signs: Vital Signs - 8 hr 04/11/24 16:46 Temperature 98.9 F Pulse Rate 89 Respiratory Rate 16 Blood Pressure 140/76 Pulse Oximetry 98 Oxygen Delivery Method Room Air <Mamta Milan DO - Last Filed: 04/12/24 08:09> Orders Ordered: Discontinued Medications Al Hydrox/Mg Hydrox/Simethicone 20 ml/ Lidocaine HCl 15 ml 0 ml PO NOW ONE Stop: 04/11/24 18:42 Last Admin: 04/11/24 18:54 Dose: 35 ml Documented By: SPF Ketorolac Tromethamine (Ketorolac 30 Mg/Ml Vial) 30 mg IM NOW ONE Stop: 04/11/24 18:02 Last Admin: 04/11/24 18:22 Dose: 30 mg Documented By: SPF Vital Signs Vital signs: Vital Signs - 8 hr 04/11/24 16:46 Temperature 98.9 F Pulse Rate 89 Respiratory Rate 16 Blood Pressure 140/76 Pulse Oximetry 98 Oxygen Delivery Method Room Air MDM - Chest Pain <Tone Lopes PA-C - Last Filed: 04/11/24 19:27> Differential Diagnosis Differential diagnosis: Likely pneumothorax, stable angina, unstable angina p ectoris, atypical chest pain, st elevation myocardial infarction, costochondritis, chest pain and other (GERD, gastritis as well as others) Medical Records Data Attestation: I reviewed the patient's medical records. Lab Data Attestation: I reviewed the patient's lab results. Labs: Lab Results 04/11/24 Range/Units 18:36 Urine Test Negative (Negative) Point of Care Testing Test Results Negative Urine Dip Bedside Urine Glucose Negative Bedside Urine Bilirubin - Negative Bedside Urine Ketone ++ 40 Urine Specific [place] 1.030 Bedside Urine Occult Blood - Negative Bedside Urine pH 6.0 Bedside Urine Protein - Negative Bedside Urine Urobilinogen - Negative Bedside Urine Nitrite - Negative Bedside Urine Leukocytes - Negative Esterase Imaging Data Chest x-ray: Radiologist's Impression: No acute abnormality, according to the radiologist ECG Data Interpretation: 12-lead EKG performed on 04/11/2024 at 7:05 p.m. reveals normal sinus rhythm with sinus arrhythmia with a ventricular rate of 76 beats per minute. No other ST, T-wave elevation, depression or ectopy noted per my interpretation. <Mamta Milan, DO - Last Filed: 04/12/24 08:09> Lab Data Labs: Lab Results 04/11/24 Range/Units 18:36 Urine Test Negative (Negative) Point of Care Testing Test Results Negative Urine Dip Bedside Urine Glucose Negative Bedside Urine Bilirubin - Negative Bedside Urine Ketone ++ 40 Urine Specific [place] 1.030 Bedside Urine Occult Blood - Negative Bedside Urine pH 6.0 Bedside Urine Protein - Negative Bedside Urine Urobilinogen - Negative Bedside Urine Nitrite - Negative Bedside Urine Leukocytes - Negative Esterase ECG Data Interpretation: 12-lead EKG performed on 04/11/2024 at 7:05 p.m. reveals normal sinus rhythm with sinus arrhythmia with a ventricular rate of 76 beats per minute. No other ST, T-wave elevation, depression or ectopy noted per my interpretation. Dr. Milan-normal sinus rhythm rate 76 IA interval 146 QRS [address] changes no S-wave some T-wave inversions no priors to compare Discharge Plan Departure Patient Disposition: Home Clinical Impression: Acute costochondritis Gastritis Qualifiers: Gastritis type: other gastritis Chronicity: acute Gastritis bleeding: without bleeding Qualified Code(s): K29.00 - Acute gastritis without bleeding Instructions: Gastritis, [place] Diet Activity Restrictions/Additional Instructions: Start the medications today as prescribed Consume a bland diet from this point forward Follow up your PCP next week for recheck Return here for any new, emergent concerns or if you worsen in any way Prescriptions: New famotidine [Pepcid] 40 mg tablet 40 mg PO BEDTIME Qty: 20 0RF ketorolac 10 mg tablet 10 mg PO Q6H PRN (Reason: pain) Qty: 20 0RF Rx Instructions: maximum total duration of 5 days from all oral, intranasal, or parenteral formulations pantoprazole [Protonix] 40 mg tablet,delayed release (DR/EC) 40 mg PO QAM Qty: 20 0RF No Action tacrolimus 0.03 % ointment 1 applictn TOP BID Qty: 60 0RF betamethasone dipropionate 0.05 % cream 1 applictn TOP BID Qty: 45 0RF venlafaxine 75 mg capsule,extended release 24hr PO Referrals: Momo Chapman MD [Primary Care Provider] - Stand Alone Forms: Patient Portal/API ED Sign-out <Mamta Milan DO - Last Filed: 04/12/24 08:09> Cosign ED Attending Cosignature Attestation: I was available for consultation.
--- NOTE | 2024-04-11 19:05 | EKG_ITS ---
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
[2024-04-11 19:16] VITALS: BP 117/68; PULSE 88; RESP 18; TEMP 36.8; O2SAT 98
== END 2024-04-11 19:24 | disposition home or self-care (01) ==
PROVIDERS: Emergency Provider Physician Assistant; PCP Family Medicine
DX: M94.0 Chondrocostal junction syndrome [Tietze] (principal); K29.00 Acute gastritis without bleeding; R07.9 Chest pain, unspecified; I49.8 Other specified cardiac arrhythmias
CPT/HCPCS: 71045; 81003; 81025; 93005; 96372; 99283; 99284; J1885